=== PATIENT | female | born 1965 | race Caucasian/White ===

== ENCOUNTER → 2017-02-28 | Outpatient (CLI) | payer BC ==
[~2017-02-28] MED LIST: GABA-282 PO; LISI10TA4 PO; OXYC1TAB23 PO; SIMV20TA2 PO
--- NOTE | 2017-02-28 16:10 | REPMRS ---
Patient History The patient states she had a clinical breast exam in Patient is postmenopausal. Family history of breast cancer in maternal aunt at age 50 or over and ovarian cancer in maternal aunt at age 50 or over. Benign stereotatic breast biopsy of the left breast. Took hormonal contraceptives for 10 years. Took unspecified hormones for 14 years. Digital Woman Screen Mammo: February 28, 2017 - Exam #: [id number] Bilateral CC and MLO view(s) were taken. Technologist: Jumana Diaz, Technologist Prior study comparison: October 08, 2014, digital woman screen mammo performed at [facility]. October 01, 2013, bilateral bilat screen digital mammo, performed at [facility] ([facility]). FINDINGS: There are scattered fibroglandular densities. There has been no change in the appearance of the mammogram from the prior studies. There is a mild amount of residual fibroglandular tissue which is fairly symmetric. There is no interval development of dominant mass, architectural distortion, or clustered microcalcification suggestive of malignancy. ASSESSMENT: BI-RADS/ACR category 1 mammogram. Negative. Recommendation Routine screening mammogram in 1 year (for women over age 40). This mammogram was interpreted with the aid of an FDA-approved computer-aided dectection system. Electronically Signed By: Neil Whelan MD 02/28/17 [id number]
== END ==
LOC: M WHC 15:20
PROVIDERS: ATTEND Internal Medicine
DX: Z12.31 Encounter for screening mammogram for malignant neoplasm of breast (principal)

== ENCOUNTER 2017-12-08 16:23 | Emergency (ER) | payer BC ==
[2017-12-08 18:17] LABS: BASO # 0.1 10^3/uL (0.0-0.2); BASO % 0.6 % (0.0-1.0); EOS # 0.1 10^3/uL (0.0-0.50); EOS % 1.3 % (0.0-3.0); HEMATOCRIT 40.8 % (36.0-47.0); HEMOGLOBIN 13.8 g/dl (12.0-15.5); IMMATURE GRANULOCYTE % 0.3 % (0-3.0); LYMPH % 22.4 % (24.0-44.0); MEAN CORPUSCULAR HEMOGLOBIN 29.2 pg (27.0-33.0); MEAN CORPUSCULAR HGB CONC 33.8 g/dl (32.0-36.5); MEAN CORPUSCULAR VOLUME 86.4 fl (80.0-96.0); MONO # 0.7 10^3/uL (0.0-0.8); MONO % 7.4 % (0.0-5.0); NEUTROPHILS # 6.1 10^3/uL (1.8-7.7); PLATELET COUNT, AUTOMATED 200 10^3/uL (150-450); RED BLOOD COUNT 4.72 10^6/uL (4.00-5.40); RED CELL DISTRIBUTION WIDTH 13.1 % (11.5-14.5); WHITE BLOOD COUNT 8.9 10^3/uL (4.0-10.0)
[2017-12-08 18:32] LABS: INR 0.94; PROTHROMBIN TIME 12.7 SECONDS (12.4-14.5)
[2017-12-08 18:33] LABS: PARTIAL THROMBOPLASTIN TIME 27.5 SECONDS (26.8-37.9)
[2017-12-08] MEDS: hydrALAZINE INJ 20 MG/ML VIAL IV ×2 (18:38→19:47)
[2017-12-08 18:49] LABS: ALBUMIN 4.2 GM/DL (3.2-5.2); ALBUMIN/GLOBULIN RATIO 1.45 (1.00-1.93); ALKALINE PHOSPHATASE 116 U/L (45-117); ALT/SGPT 20 U/L (12-78); ANION GAP 9 MEQ/L (8-16); AST/SGOT 17 U/L (7-37); BILIRUBIN,DIRECT < 0.1 MG/DL (0.0-0.2); BILIRUBIN,TOTAL 0.4 MG/DL (0.2-1.0); BLOOD UREA NITROGEN 15 MG/DL (7-18); CALCIUM LEVEL 8.6 MG/DL (8.5-10.1); CARBON DIOXIDE LEVEL 25 MEQ/L (21-32); CHLORIDE LEVEL 109 MEQ/L (98-107); CPK CREATINE PHOSPHOKINASE 179 U/L (26-192); CREATININE FOR GFR 0.95 MG/DL (0.55-1.30); GLOMERULAR FILTRATION RATE > 60.0 (>51); GLUCOSE, FASTING 86 MG/DL (70-100); LIPASE 158 U/L (73-393); POTASSIUM SERUM 3.7 MEQ/L (3.5-5.1); SODIUM LEVEL 143 MEQ/L (136-145); TOTAL PROTEIN 7.1 GM/DL (6.4-8.2); TROPONIN I < 0.02 NG/ML (< 0.10)
[2017-12-08 18:55] LABS: CK-MB VALUE MASS < 1.0 NG/ML (<3.6); MB/CK RELATIVE INDEX 0.55 (< OR =4); NT-PRO BNP 74 PG/ML (<125)
[2017-12-08] MEDS ORDERED: cloNIDine 0.2 MG TAB PO (20:15)
[2017-12-08] MEDS: cloNIDine 0.1 MG TAB PO (20:30)
== END 2017-12-08 22:55 | disposition home or self-care (01) ==
LOC: M ED 16:23
DX: I16.0 Hypertensive urgency (principal); E03.9 Hypothyroidism, unspecified; F17.210 Nicotine dependence, cigarettes, uncomplicated; Z88.0 Allergy status to penicillin; Z79.899 Other long term (current) drug therapy
CPT/HCPCS: 71046

== ENCOUNTER → 2018-06-14 | Outpatient (CLI) | payer BC | LOC: M WHC 15:05 | DX: Z12.31 Encounter for screening mammogram for malignant neoplasm of breast (principal); Z80.3 Family history of malignant neoplasm of breast; Z80.42 Family history of malignant neoplasm of prostate; Z80.41 Family history of malignant neoplasm of ovary | CPT/HCPCS: 77067 ==

== ENCOUNTER → 2019-07-23 | Outpatient (CLI) | payer BC, SELFPAY ==
[~2019-07-23] MED LIST changes: +CLONI1TA PO; -GABA-282 PO; +GABA-843 PO; +LOSA50TA5 PO; -SIMV20TA2 PO; +SIMV20TA22 PO
--- NOTE | 2019-07-23 16:58 | REPMRS ---
Patient History The patient states she has not had a clinical breast exam in over a year. Family history of breast cancer at age 50 or over and ovarian cancer at age 50 or over in maternal aunt, prostate cancer at age 50 or over in father. Benign stereotatic breast biopsy of the left breast. Took hormonal contraceptives for 10 years. Took unspecified hormones for 14 years. Digital Woman Screen Mammo: July 23, 2019 - Exam #: [id number] Bilateral CC and MLO view(s) were taken. Technologist: Mabel Winston, Technologist Prior study comparison: June 14, 2018, bilateral digital woman screen mammo performed at [facility]. February 28, 2017, digital woman screen mammo performed at [facility]. October 08, 2014, digital woman screen mammo performed at [facility]. FINDINGS: There are scattered fibroglandular densities. There is a needle biopsy marker clip again noted in the left breast. There has been no change in the appearance of the mammogram from the prior studies. There is a mild amount of scattered fibroglandular density which is fairly symmetric. There is no interval development of dominant mass, architectural distortion, or grouped microcalcification suggestive of malignancy. 3-D tomosynthesis shows no additional findings. Assessment: BI-RADS/ACR category 2 mammogram. Benign Findings. Recommendation Routine screening mammogram of both breasts in 1 year (for women over age 40). This patient's Lifetime Breast Cancer Risk is estimated at 8.4 %. This mammogram was interpreted with the aid of an FDA-approved computer-aided dectection system. Electronically Signed By: Colten Gonzalez MD 07/23/19 [id number]
== END ==
LOC: M WHC 15:39
PROVIDERS: ATTEND Internal Medicine
DX: Z12.31 Encounter for screening mammogram for malignant neoplasm of breast (principal); Z92.0 Personal history of contraception; Z92.29 Personal history of other drug therapy

== ENCOUNTER → 2020-08-13 | Outpatient (CLI) | payer BC ==
[~2020-08-13] MED LIST changes: +GABA-282 PO; -GABA-843 PO
--- NOTE | 2020-08-13 17:19 | REPMRS ---
Patient History The patient states she has not had a clinical breast exam in over a year. Family history of breast cancer at age 50 or over and ovarian cancer at age 50 or over in maternal aunt, prostate cancer at age 50 or over in father. Benign stereotatic breast biopsy of the left breast. Took hormonal contraceptives for 10 years. Took unspecified hormones for 14 years. Digital Woman Screen Mammo: August 13, 2020 - Exam #: [id number] Bilateral CC and MLO view(s) were taken. Technologist: Jackie Gaona, Technologist Prior study comparison: July 23, 2019, bilateral digital woman screen mammo performed at [facility]. June 14, 2018, bilateral digital woman screen mammo performed at [facility]. February 28, 2017, digital woman screen mammo performed at [facility]. FINDINGS: There are scattered fibroglandular densities. The Volpara volumetric breast density category is:B. There is a needle biopsy marker clip in the left breast. There has been no change in the appearance of the mammogram from the prior studies. There is a mild amount of scattered fibroglandular density which is fairly symmetric. There is no interval development of dominant mass, architectural distortion, or grouped microcalcification suggestive of malignancy. 3-D tomosynthesis shows no additional findings. Assessment: BI-RADS/ACR category 2 mammogram. Benign Findings. Recommendation Routine screening mammogram of both breasts in 1 year (for women over age 40). This patient's [facility] Lifetime Breast Cancer Risk is estimated at 8.2 %. This mammogram was interpreted with the aid of an FDA-approved computer-aided dectection system. Electronically Signed By: Colten Gonzalez MD 08/13/20 1056
== END ==
LOC: M WHC 14:45
PROVIDERS: ATTEND Internal Medicine
DX: Z12.31 Encounter for screening mammogram for malignant neoplasm of breast (principal)

== ENCOUNTER → 2021-08-25 | Outpatient (CLI) | payer BC ==
[~2021-08-25] MED LIST changes: +LISI10TA22 PO; -LISI10TA4 PO
== END ==
LOC: M WHC 15:35
PROVIDERS: ATTEND Internal Medicine
DX: Z12.31 Encounter for screening mammogram for malignant neoplasm of breast (principal); Z97.8 Presence of other specified devices

== ENCOUNTER → 2022-02-01 | Outpatient (REF) | payer BC ==
[~2022-02-01] MED LIST changes: +ATOR1TAB19 PO; +OMEP40CA5 PO
[2022-02-01 19:24] LABS: C REACTIVE PROTEIN QUANTITATIV 0.42 MG/DL (0.00-0.30)
[2022-02-03 21:10] LABS: ENDOMYSIAL ABY IgA Negative (Negative); TISSUE TRANSGLUTAMINASE IgA <2 U/mL (0-3)
== END ==
LOC: M LAB REF 16:51
PROVIDERS: ATTEND Internal Medicine
DX: R10.13 Epigastric pain (principal)

== ENCOUNTER → 2022-02-07 | Outpatient (CLI) | payer BC | LOC: M LABSMTC 09:28 | PROVIDERS: ATTEND Anesthesiology | DX: Z20.828 Contact with and (suspected) exposure to other viral communicable diseases (principal); Z11.59 Encounter for screening for other viral diseases ==

== ENCOUNTER 2022-02-09 06:48 | Day surgery (SDC) | payer BC ==
[~2022-02-09] VITALS: Ht 165.1 cm; Wt 78.0 kg
[~2022-02-09 06:48] MED LIST changes: +LIDOCAINE 2% 100MG/5ML SDV (FOR ANES.) As Ordered ONE; +NS 1,000 ML IV ONE; +fentaNYL 100 MCG/2 ML INJECTION As Ordered ONE; +propofoL 500 MG/50 ML VIAL As Ordered ONE
[2022-02-09 08:45] VITALS: BP 122/69
== END 2022-02-09 09:09 | disposition home or self-care (01) ==
LOC: M OPP 06:48
PROVIDERS: ATTEND Internal Medicine Gastroenterology
DX: Z12.11 Encounter for screening for malignant neoplasm of colon (principal); K57.30 Diverticulosis of large intestine without perforation or abscess without bleeding; Z80.0 Family history of malignant neoplasm of digestive organs; K64.0 First degree hemorrhoids; K29.70 Gastritis, unspecified, without bleeding; K22.70 Barrett's esophagus without dysplasia; K31.89 Other diseases of stomach and duodenum; I10 Essential (primary) hypertension; E78.00 Pure hypercholesterolemia, unspecified; K21.00 Gastro-esophageal reflux disease with esophagitis, without bleeding; Z87.891 Personal history of nicotine dependence; Z79.02 Long term (current) use of antithrombotics/antiplatelets; Z79.899 Other long term (current) drug therapy; Z80.1 Family history of malignant neoplasm of trachea, bronchus and lung; Z88.0 Allergy status to penicillin
CPT/HCPCS: 43239; 45380; 88305; J3010

== ENCOUNTER → 2022-03-18 | Outpatient (REF) | payer BC ==
[~2022-03-18] MED LIST changes: -LIDOCAINE 2% 100MG/5ML SDV (FOR ANES.) As Ordered ONE; -NS 1,000 ML IV ONE; -fentaNYL 100 MCG/2 ML INJECTION As Ordered ONE; -propofoL 500 MG/50 ML VIAL As Ordered ONE
== END ==
LOC: M LAB REF 12:03
PROVIDERS: ATTEND Internal Medicine
DX: R19.7 Diarrhea, unspecified (principal)

== ENCOUNTER → 2022-11-10 | Outpatient (CLI) | payer BC | LOC: M WHC 14:05 | PROVIDERS: ATTEND Internal Medicine | DX: Z12.31 Encounter for screening mammogram for malignant neoplasm of breast (principal) ==

== ENCOUNTER → 2023-11-16 | Outpatient (CLI) | payer BC | LOC: M WHC 15:12 | PROVIDERS: ATTEND Internal Medicine | DX: Z12.31 Encounter for screening mammogram for malignant neoplasm of breast (principal) ==

== ENCOUNTER 2024-07-19 10:38 | Emergency (ER) | payer BC ==
[~2024-07-19] VITALS: Ht 165.1 cm; Wt 72.3 kg
[~2024-07-19 10:38] MED LIST changes: +GABA-1172 PO; -GABA-282 PO
[2024-07-19 10:41] VITALS: BP 151/76; TEMP 97.5; O2SAT 99
[2024-07-19] MEDS: ACETAMINOPHEN 500 MG TAB PO ONE (13:05)
[2024-07-19] MEDS: KETOROLAC 30 MG/ML 1ML VIAL IV ONE (13:05)
[2024-07-19] MEDS: METOCLOPRAMIDE INJ 10MG/2ML VIAL IV ONE (13:05)
[2024-07-19 13:42] LABS: BASO % 0.4 % (0.0-1.0); EOS # 0.1 10^3/uL (0.0-0.5); EOS % 0.8 % (0.0-3.0); HEMATOCRIT 38.9 % (36.0-47.0); LYMPH # 1.8 10^3/uL (1.5-5.0); LYMPH % 20.5 % (24.0-44.0); MEAN CORPUSCULAR HEMOGLOBIN 29.3 pg (27.0-33.0); MEAN CORPUSCULAR HGB CONC 33.4 g/dl (32.0-36.5); MEAN CORPUSCULAR VOLUME 87.8 fl (80.0-96.0); MONO # 0.6 10^3/uL (0.0-0.8); MONO % 6.5 % (2.0-8.0); NEUTROPHILS # 6.4 10^3/uL (1.5-8.5); NEUTROPHILS % 71.4 % (36.0-66.0); PLATELET COUNT, AUTOMATED 209 10^3/uL (150-450); RED BLOOD COUNT 4.43 10^6/uL (4.00-5.40)
[2024-07-19 13:55] LABS: ERYTHROCYTE SEDIMENTATION RATE 12 mm/hr (0-30)
[2024-07-19 14:02] LABS: BLOOD UREA NITROGEN 14 MG/DL (9-23); C REACTIVE PROTEIN QUANTITATIV < 0.50 MG/DL (<1.0); CALCIUM LEVEL 9.4 MG/DL (8.3-10.6); CARBON DIOXIDE LEVEL 28 MMOL/L (20-31); CHLORIDE LEVEL 109 MMOL/L (98-107); CREATININE FOR GFR 0.86 MG/DL (0.55-1.30); GLOMERULAR FILTRATION RATE > 60.0 (>45); GLUCOSE, FASTING 91 MG/DL (74-106); POTASSIUM SERUM 4.3 MMOL/L (3.5-5.1); SODIUM LEVEL 144 MMOL/L (136-145)
== END 2024-07-19 15:14 | disposition home or self-care (01) ==
LOC: M ED 10:38
DX: R51.9 Headache, unspecified (principal); Z88.0 Allergy status to penicillin; I10 Essential (primary) hypertension; E78.5 Hyperlipidemia, unspecified; Z79.899 Other long term (current) drug therapy
CPT/HCPCS: 70450; 80048; 85025; 85652; 86140; 96374; 96375; 99284; J1885; J2765

== ENCOUNTER → 2024-12-03 | Outpatient (CLI) | payer BC | LOC: M WHC 14:50 | PROVIDERS: ATTEND Internal Medicine | DX: Z12.31 Encounter for screening mammogram for malignant neoplasm of breast (principal); R92.323 Mammographic fibroglandular density, bilateral breasts ==